=== PATIENT | female | born 1995 | race Caucasian/White ===

== ENCOUNTER 2018-08-31 17:14 | Emergency (ER) | payer OTHER, BC, MEDICAID ==
[2018-08-31 17:24] VITALS: BP 134/82
[2018-08-31] MEDS ORDERED: IBUPROFEN 600 MG TAB PO ONE (17:43)
[2018-08-31] MEDS ORDERED: ONDANSETRON DISINTEGRATING 4 MG TAB PO ONE (17:43)
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
== END 2018-08-31 17:52 | disposition home or self-care (01) ==
DX: R51 Headache (principal); R11.0 Nausea; V49.49XA Driver injured in collision with other motor vehicles in traffic accident, initial encounter; Y92.410 Unspecified street and highway as the place of occurrence of the external cause